=== PATIENT | male | born 1985 | race Caucasian/White ===

== ENCOUNTER 2017-03-11 00:26 | Emergency (ER) | payer BC, SELFPAY ==
[2017-03-11 00:28] VITALS: BP 170/95; PULSE 102; RESP 12; TEMP 36.8; O2SAT 98; BMI 23.1
--- NOTE | 2017-03-11 00:38 | XR_ITS ---
XR chest 2V HISTORY: ITS.REASON: PALPITATIONS/TACHYCARDIA ORDERING PHYSICIAN: Ahmet Black MD PATIENT AGE: 31 years COMPARISON: 10/26/2006 FINDINGS: The cardiomediastinal silhouette and pulmonary vascularity are within normal limits. The lungs are clear without infiltrates, suspicious nodules, or pleural effusions. No acute bony abnormalities. IMPRESSION: Negative chest, no acute finding
[2017-03-11 00:59] LABS: Basophils # 0.1 K/mm3 (0-0.2); Basophils % 0.6 % (0.1-2.0); Eosinophils # 0.1 K/mm3 (0.0-0.4); Eosinophils % 1.1 % (0.1-12.0); Hematocrit 44.6 % (42.0-52.0); Hemoglobin 14.9 g/dL (14.1-18.0); Lymphocytes # 2.9 K/mm3 (0.7-4.5); Lymphocytes % 30.8 K/mm3 (10-50); Mean Corpuscular HGB Conc 33.4 g/dL (31.8-35.4); Mean Corpuscular Hemoglobin 28.5 pg (27.0-31.2); Mean Corpuscular Volume 85.1 fl (80-94); Mean Platelet Volume 7.1 fl (7.4-10.4); Monocytes # 0.5 K/mm3 (0.1-1.0); Monocytes % 5.2 % (1.7-9.3); Neutrophils # 5.8 K/mm3 (1.8-7.8); Neutrophils % 62.4 % (37.0-80.0); Platelet Count 364 K/mm3 (142-424); Red Blood Count 5.24 M/mm3 (4.60-6.20); Red Cell Distribution Width 12.2 % (11.5-17.5); White Blood Count 9.3 K/mm3 (4.8-10.8)
[2017-03-11 01:18] LABS: Alanine Aminotransferase 42 U/L (12-78); Albumin Level 4.2 gm/dL (3.4-5.0); Albumin/Globulin Ratio 1.3 (1.1-1.8); Alkaline Phosphatase 94 U/L (46-116); Anion Gap 12.4 mEq/L (5-15); Aspartate Amino Transferase 20 U/L (15-37); Bilirubin,Total 0.2 mg/dL (0.2-1.0); Blood Urea Nitrogen 11 mg/dL (7-18); CKMB Relative Index 0.9 U/L (0-4.0); Calcium 9.1 mg/dL (8.5-10.1); Carbon Dioxide 28 mmol/L (21.0-32.0); Chloride 103 mmol/L (98-107); Creatine Kinase 223 U/L (39-308); Creatine Kinase MB 2.1 mg/ml (0.0-3.6); Creatinine Clearance Estimated 145 mL/min (0-300); Creatinine,Serum 0.91 mg/dL (0.70-1.30); Estimated Glomerular Filt Rate 98 ml/min (>60); GFR (African American) 118 ML/MIN (>60); Globulin 3.3 gm/dl (1.3-3.2); Glucose 104 mg/dL (74-106); Potassium 3.4 mmoL/L (3.5-5.1); Sodium 140 mmol/L (136-145); Total Protein,Serum 7.5 gm/dL (6.4-8.2); Troponin I 0.04 ng/ml (0.00-0.06)
--- NOTE | 2017-03-11 01:29 | HMH.EDCP ---
ED Disposition Clinical Impression: Palpitations Disposition: Home, Self-Care Condition on Discharge: Good Instructions: DI for Palpitations Additional Instructions: please see pcp or dr doran for follow up - Critical Care Critical Care Time: No Attestation: On , the high probability of a clinically significant, sudden or life threatening deterioration of the following system(s) required my full and direct attention, intervention and personal management. The time I documented below is in addition to time spent performing reported procedures but includes the following listed in this critical care notation. Medical Decision Making - Medical Records Medical records reviewed: Yes: I reviewed the patient's medical records. Vital Signs: 03/11/17 00:28 03/11/17 01:36 Temperature 98.3 F Temperature Source Oral Pulse Rate [Right Brachial] 102 H 64 Respiratory Rate 12 18 Blood Pressure [Right Arm] 170/95 142/75 Blood Pressure Mean [Right Arm] 120 97 Blood Pressure Source [Right Arm] Automatic Cuff Automatic Cuff Blood Pressure Position [Right Arm] Sitting Sitting 02 Sat by Pulse Oximetry 98 99 Oxygen Delivery Method Room Air Room Air - Lab Data Lab results reviewed: Yes: I reviewed the patient's lab results. Lab Results 03/11/17 00:45: WBC 9.3, RBC 5.24, Hgb 14.9, Hct 44.6, MCV 85.1, MCH 28.5, MCHC 33.4, RDW 12.2, Plt Count 364, MPV 7.1 L, Neut % (Auto) 62.4, Lymph % (Auto) 30.8, [place] % (Auto) 5.2, Eos % (Auto) 1.1, Baso % (Auto) 0.6, Neut # (Auto) 5.8, Lymph # (Auto) 2.9, [place] # (Auto) 0.5, Eos # (Auto) 0.1, Baso # (Auto) 0.1 03/11/17 00:45: Sodium 140, Potassium 3.4 L, Chloride 103, Carbon Dioxide 28, Anion Gap 12.4, BUN 11, Creatinine 0.91, Estimated Creat Clear 145, Estimated GFR 98, Est GFR ( Amer) 118, Glucose 104, Calcium 9.1, Total Bilirubin 0.2, AST 20, ALT 42, Alkaline Phosphatase 94, Total Creatine Kinase 223, CK-MB (CK-2) 2.1, CK-MB (CK-2) Rel Index 0.9, Troponin I 0.04, Total Protein 7.5, Albumin 4.2, Globulin 3.3 H, Albumin/Globulin Ratio 1.3 03/11/17 01:40: Urine Opiates Screen Negative, Ur Barbituates Screen Negative, Ur Phencyclidine Scrn Negative, Ur Amphetamines Screen Negative, U Methamphetamines Scrn Negative, U Benzodiazepines Scrn Negative, Urine Cocaine Screen Negative, U Marijuana (THC) Screen Negative Result diagrams: 03/11/17 00:45 03/11/17 00:45 Orders (Tests/Meds): ORDERS Category Date Time Status Chest XR 2 view (NOT portable) [XR chest 2V] Stat Exams 03/11/17 00:38 Taken T4 (Thyroxine) Stat Lab 03/11/17 01:59 Ordered TSH [Thyroid Stimulating Hormone] Stat Lab 03/11/17 01:59 Ordered ECG Request by /Mdahav Stat Y 03/11/17 00:38 Ordered - Radiology Data #1 Image(s): Chest Image Reviewed: Yes I reviewed the patient's radiology image Preliminary Findings: Normal/NAD - ECG Data Tracing #1 I reviewed this ECG and interpreted as documented below: Ischemic changes: non-specific ST-T wave changes - Zeyad Inquiry Pt receiving controlled substance: No Chest Pain HPI - General Chief Complaint: Arrhythmia/Palpitations Stated Complaint: C/O RAPID HEARTRATE Time Seen by Provider: 03/11/17 01:29 Mode of Arrival: Family Vehicle Limitations: No Limitations Description of Symptoms (Recalled from ER Triage Doc. by RN): C/O PALPITATIONS/RAPID HEART RATE - History of Present Illness HPI narrative: pt with episodes of inc hr with no fever or syncope over the last 3 days - no excessive stimulants MD complaint: other Onset (ago): day(s) Duration: intermittent Pain location: other Severity: moderate Quality: other Relieving factors: nothing Exacerbating factors: nothing Treatments prior to or on arrival for Cardiac Chest Pain: none - Related Data Home Medications Medication Instructions Recorded Confirmed No Known Home Medications [No 03/11/17 03/11/17 Known Home Medications] Allergies Allergy/AdvReac Type Severity Reacti
--- NOTE | 2017-03-11 01:33 | ED_ITS ---
ED Disposition Clinical Impression: Palpitations Disposition: Home, Self-Care Condition on Discharge: Good Instructions: DI for Palpitations Additional Instructions: please see pcp or dr doran for follow up - Critical Care Critical Care Time: No Attestation: On , the high probability of a clinically significant, sudden or life threatening deterioration of the following system(s) required my full and direct attention, intervention and personal management. The time I documented below is in addition to time spent performing reported procedures but includes the following listed in this critical care notation. Medical Decision Making - Medical Records Medical records reviewed: Yes: I reviewed the patient's medical records. Vital Signs: 03/11/17 00:28 03/11/17 01:36 Temperature 98.3 F Temperature Source Oral Pulse Rate [Right Brachial] 102 H 64 Respiratory Rate 12 18 Blood Pressure [Right Arm] 170/95 142/75 Blood Pressure Mean [Right Arm] 120 97 Blood Pressure Source [Right Arm] Automatic Cuff Automatic Cuff Blood Pressure Position [Right Arm] Sitting Sitting 02 Sat by Pulse Oximetry 98 99 Oxygen Delivery Method Room Air Room Air - Lab Data Lab results reviewed: Yes: I reviewed the patient's lab results. Lab Results 03/11/17 00:45: WBC 9.3, RBC 5.24, Hgb 14.9, Hct 44.6, MCV 85.1, MCH 28.5, MCHC 33.4, RDW 12.2, Plt Count 364, MPV 7.1 L, Neut % (Auto) 62.4, Lymph % (Auto) 30.8, [facility] % (Auto) 5.2, Eos % (Auto) 1.1, Baso % (Auto) 0.6, Neut # (Auto) 5.8 , Lymph # (Auto) 2.9, [facility] # (Auto) 0.5, Eos # (Auto) 0.1, Baso # (Auto) 0.1 03/11/17 00:45: Sodium 140, Potassium 3.4 L, Chloride 103, Carbon Dioxide 28, Anion Gap 12.4, BUN 11, Creatinine 0.91, Estimated Creat Clear 145, Estimated GFR 98, Est GFR ( Amer) 118, Glucose 104, Calcium 9.1, Total Bilirubin 0.2, AST 20, ALT 42, Alkaline Phosphatase 94, Total Creatine Kinase 223, CK-MB ( CK-2) 2.1, CK-MB (CK-2) Rel Index 0.9, Troponin I 0.04, Total Protein 7.5, Albumin 4.2, Globulin 3.3 H, Albumin/Globulin Ratio 1.3 03/11/17 01:40: Urine Opiates Screen Negative, Ur Barbituates Screen Negative, Ur Phencyclidine Scrn Negative, Ur Amphetamines Screen Negative, U Methamphetamines Scrn Negative, U Benzodiazepines Scrn Negative, Urine Cocaine Screen Negative, U Marijuana (THC) Screen Negative Result diagrams: 03/11/17 00:45 03/11/17 00:45 Orders (Tests/Meds): ORDERS Category Date Time Status Chest XR 2 view (NOT portable) [XR chest 2V] Stat Exams 03/11/17 00:38 Taken T4 (Thyroxine) Stat Lab 03/11/17 01:59 Ordered TSH [Thyroid Stimulating Hormone] Stat Lab 03/11/17 01:59 Ordered ECG Request by /Madhav Stat Y 03/11/17 00:38 Ordered - Radiology Data #1 Image(s): Chest Image Reviewed: Yes I reviewed the patient's radiology image Preliminary Findings: Normal/NAD - ECG Data Tracing #1 I reviewed this ECG and interpreted as documented below: Ischemic changes: non-specific ST-T wave changes - Zeyad Inquiry Pt receiving controlled substance: No Chest Pain HPI - General Chief Complaint: Arrhythmia/Palpitations Stated Complaint: C/O RAPID HEARTRATE Time Seen by Provider: 03/11/17 01:29 Mode of Arrival: Family Vehicle Limitations: No Limitations Description of Symptoms (Recalled from ER Triage Doc. by RN): C/O PALPITATIONS/ RAPID HEART RATE - History of Present Illness HPI narrative: p
[2017-03-11 01:36] VITALS: BP 142/75; PULSE 64; RESP 18; O2SAT 99
[2017-03-11 01:56] LABS: Amphetamine/Metha Screen,Urine Negative ng/mL (<1000); Barbiturates Screen,Urine Negative ng/mL (<200); Benzodiazepines Screen,Urine Negative ng/mL (200); Cannabinoid Screen,Urine Negative ng/mL (<50); Cocaine Screen,Urine Negative ng/g (<300); Methadone Screen,Urine Negative ng/mL (<300); Opiate Screen,Urine Negative ng/mL (<300); Phencyclidine Screen,Urine Negative ng/mL (<25)
[2017-03-11 02:38] VITALS: BP 146/83; PULSE 65; RESP 18; O2SAT 97
[2017-03-11 03:50] LABS: T4 (Thyroxine) 8.8 ug/dl (4.7-13.3); Thyroid Stimulating Hormone 2.15 uIU/ml (0.358-3.740)
== END 2017-03-11 02:43 | disposition home or self-care (01) ==
PROVIDERS: Emergency Provider Emergency Medicine; Family Provider Internal Medicine Adolescent Medicine; PCP Internal Medicine Adolescent Medicine
DX: R00.2 Palpitations (principal); F17.210 Nicotine dependence, cigarettes, uncomplicated
CPT/HCPCS: 71046; 80053; 80305; 82550; 82553; 84436; 84443; 84484; 85025; 93005; 93041; 99284

== ENCOUNTER → 2017-11-18 09:02 | Outpatient (CLI) | payer BC, SELFPAY | PROVIDERS: PCP Internal Medicine Adolescent Medicine; Visit Provider Internal Medicine Adolescent Medicine | DX: R07.9 Chest pain, unspecified (principal) | CPT/HCPCS: 93017 ==

== ENCOUNTER → 2018-10-22 08:10 | Outpatient (CLI) | payer OTHER, SELFPAY ==
--- NOTE | 2018-10-22 08:16 | XR_ITS ---
PROCEDURE: XR KNEE RT 4V CLINICAL INDICATION: Rt Knee pain Pain following injury COMPARISON: XR KNEE RT 3V from 10/14/2018 FINDINGS: No fracture or dislocation. No lytic or blastic change. There is normal mineralization. Mild osteoarthritic change involves the medial compartment and patellofemoral joint unchanged. Small bone island is present in the distal femur. Other findings:None. IMPRESSION: Minimal osteoarthritic change Dictated by: Kev Moseley MD 10/22/2018 09:55 Signed by: <Electronically signed by Kev Moseley MD in [place]> 10/22/2018 09:55
== END ==
PROVIDERS: PCP Internal Medicine Adolescent Medicine; Visit Provider Orthopaedic Surgery
DX: M25.561 Pain in right knee (principal)
CPT/HCPCS: 73564

== ENCOUNTER → 2018-11-26 14:24 | Outpatient (CLI) | payer OTHER, SELFPAY ==
--- NOTE | 2018-11-26 14:40 | MR_ITS ---
PROCEDURE: MR KNEE RT WO CON CLINICAL INDICATION: right knee pain COMPARISON: No exams were available for comparison TECHNIQUE: Routine multi-echo and multiplanar images. FINDINGS: Alignment, joint spaces and signal from the osseous marrow elements are normal. There are a few small foci of increased signal within the articular cartilage at the medial facet of the patella. The cartilage is otherwise intact without marrow edema. The remainder of the articular cartilage areas of the condyles appear to be intact. The patellar retinacular areas are normal. There is some intermediate signal involving the distal insertion of the quadriceps tendon at the patella. The patellar tendon is intact. Anterior and posterior cruciate ligaments as well as the MCL and lateral capsular complex appear to be intact. Coronal T2 image number 18 from series number 8 shows very subtle truncated appearance of the inner tip of the body of the medial meniscus. The remainder of the medial meniscus and the lateral meniscus appear normal. Surrounding soft tissues are otherwise normal without a popliteal cyst. There is a small joint effusion. IMPRESSION: Subtle small truncated type of radial tear of the body of the medial meniscus, 18 from series 8. 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 Tendinosis of the quadriceps tendon. Dictated by: Shiv Rivera 11/26/2018 16:54 Electronically signed by Shiv Rivera in [place] 11/26/2018 16:54
== END ==
PROVIDERS: PCP Internal Medicine Adolescent Medicine; Visit Provider Orthopaedic Surgery
DX: M25.561 Pain in right knee (principal)
CPT/HCPCS: 73721

== ENCOUNTER → 2021-02-13 19:01 | Outpatient (CLI) | payer BC, SELFPAY | PROVIDERS: Visit Provider Nurse Practitioner Family | DX: Z20.822 Contact with and (suspected) exposure to COVID-19 (principal) | CPT/HCPCS: C9803; U0003; U0005 ==

== ENCOUNTER → 2021-03-12 19:26 | Outpatient (CLI) | payer BC, SELFPAY | PROVIDERS: Visit Provider Nurse Practitioner Family | DX: U07.1 COVID-19 (principal) | CPT/HCPCS: C9803; U0003; U0005 ==

== ENCOUNTER 2022-02-04 09:55 | Emergency (ER) | payer BC, SELFPAY ==
--- NOTE | 2022-02-04 12:13 | EXP.UTC ---
Discharge Plan Disposition Patient Disposition: Home, Self-Care Condition: Good Prescriptions Prescriptions: New amoxicillin [amoxicillin] 500 mg tablet 500 mg PO TID 10 Days Qty: 30 0RF methylprednisolone 4 mg Tablets,Dose Pack 4 mg PO DIRECTED Qty: 21 0RF [id number]-[id number]-DT [Bromfed DM] 2-30-10 mg/5 mL Syrup 5 ml PO Q6H PRN (Reason: Cough) Qty: 240 0RF No Action amlodipine 5 mg tablet 5 mg PO Referrals Follow up/Referrals: Provider,Referral, MD [Primary Care Provider] - See instructions Activity Restrictions/Add. Instructions Additional Instructions/Restrictions: Drink plenty of fluids. Take tylenol or ibuprofen for pain or fever. Take the medications as directed. Follow up with your regular doctor. GO TO THE ER FOR ANY WORSENING SYMPTOMS Clinical Impressions Clinical Impression: Otitis media, Bronchitis Stand Alone Forms Stand Alone Forms: Work/School Release Instructions Patient Instructions: Middle Ear Infection, DI for Viral Syndrome Discharge ED Provider: Corwin Douglas [facility] General Stated complaint: chest/head congestion, ear pain, body aches Time Seen by Provider: 02/04/22 12:13 History of Present Illness Provider Complaint: He c/o chest/head congestion, ear pain and malaise for the past 2 days Related Data Home Medications Medication Instructions Recorded Confirmed amlodipine 5 mg tablet 5 mg PO 02/13/21 03/12/21 Previous Rx's Medication Instructions Recorded amoxicillin 500 mg tablet 500 mg PO TID 10 days #30 tabs 02/04/22 qqpltaflshzfavn-exxmvwwdqjibjnr-RH 5 ml PO Q6H PRN Cough #240 mL 02/04/22 2 mg-30 mg-10 mg/5 mL oral syrup (Bromfed DM) methylprednisolone 4 mg tablets in 4 mg PO DIRECTED #21 tabs 02/04/22 a dose pack Allergies Allergy/AdvReac Type Severity Reaction Status Date / Time No Known Allergies Allergy Verified 02/04/22 12:24 [facility] Disclaimer: The information contained in this section may have been updated after the patient was seen, as this information can be updated by other users. Social History Smoking Status: Current every day smoker tobacco type: cigarettes packs per day: 1 alcohol intake: never substance use type: denies use current occupational status: employed Travel in the last 8 weeks: None household members: significant other housing: house ROS Obtained: Yes All systems reviewed & no additional complaints except as documented Constitutional Constitutional: Denies chills, Reports fever(s) and Reports poor appetite Eyes Eyes: Denies eye discharge ENT Ears, Nose, Mouth, and Throat: Denies ear discharge, Reports otalgia, Denies hearing loss, Denies sinus pain and Reports sore throat Cardiovascular Cardiovascular: Denies chest pain and Denies dyspnea Respiratory Respiratory: Denies chest congestion, Reports cough and Denies dyspnea Gastrointestinal Gastrointestingal: Denies abdominal pain, diarrhea, nausea or vomiting Musculoskeletal Musculoskeletal: Denies arthralgias Integumentary/Breasts Skin/Breast: Denies rash Physical Exam General General appearance: alert and in no apparent distress Head Head exam: atraumatic, normocephalic and normal inspection Eye Eye exam: Present normal appearance; Absent PERRL or EOMI ENT ENT exam: Present mucous membranes moist and normal external ear exam Expanded ENT Exam TM/Canal exam: Bilateral TM: erythema, bulging and effusion Nose exam: Absent sinus tenderness Nasal speculum exam: Bilateral: normal Mouth exam: Present normal external inspection and other; Absent drooling Teeth exam: Present normal inspection Throat exam: Present tonsillar erythema and tonsillomegaly Neck Neck exam: Present normal inspection, full ROM and trachea midline; Absent tenderness, meningismus or lymphadenopathy Chest Chest inspection: Present normal inspection and symmetric chest wall rise;
[2022-02-04 12:22] VITALS: BP 131/84; PULSE 72; RESP 16; TEMP 36.8; O2SAT 99; BMI 25.0
[2022-02-04 12:25] LABS: UTC Strep Screen (Rapid) Negative (Negative)
[2022-02-04 12:29] LABS: Adenovirus,PCR Not Detected (NotDetected); Bordetella Pertussis Not Detected (NotDetected); Chlamydophila Pneumoniae, PCR Not Detected (NotDetected); Coronavirus 19, PCR Not Detected (NotDetected); Coronavirus 229E Not Detected (NotDetected); Coronavirus NL63 Not Detected (NotDetected); Coronavirus OC43 Not Detected (NotDetected); Coronovirus HKU1,PCR Not Detected (NotDetected); Human Metapneumovirus Not Detected (NotDetected); Influenza A, PCR Not Detected (NotDetected); Influenza AH1, 2009 Not Detected (NotDetected); Influenza AH1, PCR Not Detected (NotDetected); Influenza AH3,PCR Not Detected (NotDetected); Influenza B, PCR Not Detected (NotDetected); Mycoplasma Pneumoniae, PCR Not Detected (NotDetected); Parainfluenza 1, PCR Not Detected (NotDetected); Parainfluenza 2, PCR Not Detected (NotDetected); Parainfluenza 3, PCR Not Detected (NotDetected); Parainfluenza 4, PCR Not Detected (NotDetected); Respiratory Syncytial Virus Not Detected (NotDetected); Rhinovirus/Enterovirus Not Detected (NotDetected)
[2022-02-04 13:03] VITALS: BP 131/84; PULSE 72; RESP 16; TEMP 36.8
== END 2022-02-04 13:11 | disposition home or self-care (01) ==
PROVIDERS: Emergency Provider Nurse Practitioner Family
DX: J40 Bronchitis, not specified as acute or chronic (principal); H66.90 Otitis media, unspecified, unspecified ear
CPT/HCPCS: 87581; 87632; 87798; 87880; 99212; C9803; G0463; U0003; U0005

== ENCOUNTER → 2022-12-10 15:54 | Outpatient (CLI) | payer BC, SELFPAY ==
--- NOTE | 2022-12-10 15:58 | XR_ITS ---
FINAL REPORT CLINICAL HISTORY: R elbow pain x1 month FINDINGS: 2 views of the right elbow were obtained. There is no acute fracture or dislocation. There is no joint effusion. The joint spaces are intact. There are no acute soft tissue abnormalities. IMPRESSION: No acute process. Reviewed, Interpreted and Dictated by Alvin Quinones III, MD Transcribed by Med Simmons Authenticated and [facility]
== END ==
PROVIDERS: Visit Provider Orthopaedic Surgery
DX: M25.521 Pain in right elbow (principal)
CPT/HCPCS: 73070

== ENCOUNTER 2023-03-13 09:08 | Outpatient (CLI) | payer BC, SELFPAY ==
--- NOTE | 2023-03-13 09:09 | US_ITS ---
FINAL REPORT TECHNIQUE: Ultrasound soft tissues lateral aspect of the right knee. CLINICAL HISTORY: soft tissue swelling of lateral R knee COMPARISON: None FINDINGS: ULTRASOUND SOFT TISSUES RIGHT KNEE: The patient has a palpable mass on the lateral aspect of the right knee. There is a 2.4 x 0.9 x 1.2 cm fluid collection at the area of interest. This likely represents a seroma, hematoma, or abscess. IMPRESSION: 2.4 x 0.9 x 1.2 cm fluid collection in the area of interest, lateral aspect right knee. This likely represents a seroma, hematoma Reviewed, Interpreted and Dictated by Alvin Quinones III, MD Transcribed by Rimma Fitch Authenticated and . [facility]
== END 2023-03-13 23:59 | disposition home or self-care (01) ==
LOC: RAD 09:09
PROVIDERS: PCP Student in an Organized Health Care Education/Training Program; Visit Provider Student in an Organized Health Care Education/Training Program
DX: M25.461 Effusion, right knee (principal)
CPT/HCPCS: 76882

== ENCOUNTER 2023-03-17 15:49 | Outpatient (CLI) | payer BC, SELFPAY ==
--- NOTE | 2023-03-17 15:54 | XR_ITS ---
FINAL REPORT CLINICAL HISTORY: mass of soft tissue of right knee COMPARISON: None FINDINGS: Three views of the right knee were obtained. There is no acute fracture or dislocation. There are minimal hypertrophic changes of the medial joint margin along the undersurface of the patella consistent with osteoarthritis. No definite soft tissue mass identified. IMPRESSION: Degenerative changes. No definite soft tissue mass identified. MRI may better evaluate. Reviewed, Interpreted and Dictated by Adithya Ro MD Transcribed by Xin Lama Authenticated and [facility]
== END 2023-03-17 23:59 ==
LOC: RAD 15:51
PROVIDERS: PCP Student in an Organized Health Care Education/Training Program; Visit Provider Student in an Organized Health Care Education/Training Program
DX: M79.89 Other specified soft tissue disorders (principal)
CPT/HCPCS: 73562

== ENCOUNTER 2023-04-09 08:01 | Outpatient (CLI) | payer BC, SELFPAY ==
--- NOTE | 2023-04-09 08:12 | MR_ITS ---
FINAL REPORT CLINICAL HISTORY: knee pain. KNOT ON LATERAL ASPECT OF KNEE.PUT MARKER ON KNOT. COMPARISON: 11/26/2018 FINDINGS: Multiplanar MR imaging of the right knee was performed without contrast. There is a tear of the posterior horn of the lateral meniscus. The medial meniscus is intact. The anterior and posterior cruciate ligaments are intact. The medial collateral ligament and lateral ligamentous complex are intact. The patellar and quadriceps tendons are intact. There is no evidence of fracture. There is focal moderate chondromalacia of the medial patellar facet. No significant joint effusion is seen. The musculature is intact. There is a 22 mm lobular cystic mass lateral to the tibiofibular joint consistent with a ganglion cyst. There is also a lobular cyst medial to the proximal tibiofibular joint, which is stable since the prior MRI. IMPRESSION: Tear posterior horn lateral meniscus. Focal moderate chondromalacia of the medial patellar facet. Small cystic structures adjacent to both the medial and lateral aspects of the knee, consistent with ganglion cysts. The medial cyst is stable in appearance, while the lateral cyst is larger than the prior exam. Reviewed, Interpreted and Dictated by Alvin Quinones III, MD Transcribed by Rimma Fitch Authenticated and . [facility]
== END 2023-04-09 23:59 ==
LOC: RAD 08:01
PROVIDERS: PCP Student in an Organized Health Care Education/Training Program; Visit Provider Orthopaedic Surgery
DX: M25.561 Pain in right knee (principal); M25.461 Effusion, right knee
CPT/HCPCS: 73721

== ENCOUNTER 2023-04-24 11:16 | Outpatient (CLI) | payer BC, SELFPAY ==
[2023-04-24 11:30] LABS: Basophils # 0.1 K/mm3 (0-0.2); Basophils % 1.5 % (0.1-2.0); Eosinophils # 0.1 K/mm3 (0.0-0.4); Eosinophils % 1.6 % (0.1-12.0); Hematocrit 49.3 % (42.0-52.0); Hemoglobin 16.2 g/dL (14.1-18.0); Lymphocytes # 2.8 K/mm3 (0.7-4.5); Lymphocytes % 34.8 % (10-50); Mean Corpuscular HGB Conc 32.8 g/dL (31.8-35.4); Mean Corpuscular Hemoglobin 29.4 pg (27.0-31.2); Mean Corpuscular Volume 89.5 fl (80-94); Mean Platelet Volume 7.7 fl (7.4-10.4); Monocytes # 0.6 K/mm3 (0.1-1.0); Monocytes % 7.2 % (1.7-9.3); Neutrophils # 4.4 K/mm3 (1.8-7.8); Neutrophils % 54.8 % (37.0-80.0); Platelet Count 306 K/mm3 (142-424); Red Cell Distribution Width 12.9 % (11.5-17.5)
[2023-04-24 12:04] LABS: Alanine Aminotransferase 60 U/L (12-78); Albumin Level 4.7 g/dl (3.5-5.0); Albumin/Globulin Ratio 1.8 (1.1-1.8); Alkaline Phosphatase 73 U/L (38-126); Anion Gap 10.9 mEq/L (5-15); Aspartate Amino Transferase 38 U/L (17-59); Bilirubin,Total 0.6 mg/dl (0.2-1.3); Blood Urea Nitrogen 8 mg/dl (9-20); Calcium 9.5 mg/dl (8.4-10.2); Carbon Dioxide 28 mmol/L (22.0-30.0); Chloride 105 mmol/L (98-107); Estimated Glomerular Filt Rate 109 ml/min (>60); GFR (African American) 132 ML/MIN (>60); Globulin 2.6 g/dL (1.3-3.2); Glucose 76 mg/dl (74-100); Potassium 3.9 mmoL/L (3.5-5.1); Sodium 140 mmol/L (136-145); Total Protein,Serum 7.3 g/dl (6.3-8.2)
== END 2023-04-24 23:59 ==
LOC: LAB 11:16
PROVIDERS: PCP Student in an Organized Health Care Education/Training Program; Visit Provider Orthopaedic Surgery
DX: M25.461 Effusion, right knee (principal)
CPT/HCPCS: 36415; 80053; 85025

== ENCOUNTER 2023-04-30 07:04 | Day surgery (SDC) | payer BC, SELFPAY ==
[2023-04-30] VITALS (10 sets, daily range): BP systolic 127–155; BP diastolic 75–96; PULSE 65–81; RESP 12–99; TEMP 36.3–36.6; O2SAT 96–98; BMI 24.3
[2023-04-30] MEDS: LACTATED RINGERS 1000ML 1,000 ML 25 ML IV (07:18)
[2023-04-30] MEDS: CEFAZOLIN SODIUM 2 GM in 0.9 % SODIUM CHLORIDE 100 ML IV (08:40)
--- NOTE | 2023-04-30 08:47 | P.PNANES_ITS ---
[facility] Disclaimer: The information contained in this section may have been updated after the patient was seen, as this information can be updated by other users. 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 HTN (hypertension) Knee pain Surgical History (Updated 04/30/23 @ 07:25 by Jose J Bravo RN) History of cardiac cath History of tonsillectomy Family History (Updated 04/30/23 @ 07:25 by Jose J Bravo RN) Family/Other No significant family history Other Prostate cancer Social History (Updated 04/30/23 @ 07:26 by Jose J Bravo RN) Smoking Status: Current every day smoker tobacco type: cigarettes packs per day: 1 alcohol intake: never substance use type: denies use current occupational status: employed Travel in the last 8 weeks: None household members: significant other housing: house [facility] Anesthesia Checklist Patient Identification Patient Identification: Verbal (Name & ) Structural Data Admitted From: Home Planned Operative Procedure/s: r knee arthroscopy Consent for Planned Operative Procedure(s) Verified: Yes NPO Status Verified Time NPO: 00:00 Additional verifications Anesthesia Reactions: No Hx Blood Transfusions: No Blood Transfusion Reaction: No Airway Assessment Mallampati Score:: Class III C-Spine Mobility Assessed: Yes TMJ Mobility Assessed: Yes Dentition: Good Dentition Neurological Assessment Level of Consciousness: Awake, Alert and Appropriate Anesthesia Plan Anesthesia Risk discussed: Yes Anesthesia Plan: Verified ASA Class: II Anesthesia Type: General
[2023-04-30] MEDS: BUPIVACAINE 0.25% 30ML VIAL 75 MG (08:52)
--- NOTE | 2023-04-30 09:48 | P.OP_ITS ---
Date of procedure: 04/30/23 Pre-op Diagnosis:: Right knee lateral meniscus tear Right knee parameniscal cyst Post-op Diagnosis:: Same Procedure performed:: Right knee arthroscopy with partial lateral meniscectomy Right knee incision drainage parameniscal cyst Surgeon:: Christiano Mcclelland DO RETURN CLERK:: Zach Henderson Anesthesia: GETA Estimated blood loss (mL): 0 Operative findings:: There is a large engaging synovial tissue on the lateral aspect of the knee where the meniscal fluid was leaking from the lateral meniscus tear with subsequent rubbing of the lateral femoral condyle and formation of osteophyte indicating longstanding rubbing and impingement of the soft tissue on the lateral joint line Operative note:: Patient was identified preoperatively. Right knee marked yes my initials transferred operative suite placed upon operating bed general anesthesia ministered airway secured. Right lower extremity prepped and draped within the knee hair. Once prepped and draped final operative timeout performed to identify proper patient procedure and extremity. Everyone involved the case agreed. There were no counter indications to beginning. Did receive preoperative antibiotics. Marking pen was used to hannah bony landmarks of the knee and standard portal sites. Esmarch was used to exsanguinate the extremity and pneumatic tourniquet inflated to 300 mmHg. Skin knife was used to incise standard anterior lateral portal. Blunt with trocar was placed in the patellofemoral joint exchange with a camera. Diagnostic arthroscopy began. I swept directly into the patellofemoral joint where the patella was intact the trochlea was intact with some mild softening of the undersurface of the patella. Subjective into the medial joint line. The medial cartilage was intact the medial meniscus was intact. So into the intercondylar notch the ACL was seen and intact. Tensions then brought to the lateral joint line. Within the lateral joint line there was tearing of the body and posterior horn the lateral meniscus using combination of straight biter and sucker shaver partial lateral meniscectomy was performed back to stable rim. Upon flexion extension of the knee there was soft tissue impingement in the anterior horn of the lateral meniscus with a large impingement area anterior to the lateral meniscus which was rubbing on the lateral femoral condyle and creating osteophyte formation in this area. Shanthi ridement of this synovium and rim were performed to allow the knee to bend without impinging impinging on the soft tissue which was where the fluid was leaking from the synovial cyst formed. Upon removing the soft tissue synovitis there is no further clicking of the knee with bending and extension. Unfortunately a significant amount of lateral meniscus was torn and had to be sacrificed and meniscectomy Attention was then brought to the lateral side where there is a cyst formation inferior to the joint line 15 blade was used to make incision the skin careful dissection was taken down cyst was then ruptured with a hemostat. Irrigation was performed. Deep layers closed with Vicryl and nylon the skin for closure. Portal sites in the knee were also closed. Sterile dressing placed from toe to thigh. Patient waken anesthesia taken recovery in stable condition. Condition: stable Disposition: PACU Complications:: None apparent
--- NOTE | 2023-04-30 09:48 | P.PNANES_ITS ---
[facility] Anesthesia Record Part I Anesthesia Record I Intake, IV Amount: 1,500 Hydration: Adequate Estimated blood loss (mL): 0 Urine output (mL): 0 Blood Pressure: 145/91 SaO2: 96 Pulse Rate: 72 Airway Patency: Patent Respiratory Rate: 12 Temperature: 97.5 F Patient is:: Awake and Stable Stable to PACU at:: 09:48
[2023-04-30] MEDS: MORPHINE 2MG/ML SYRINGE 2 MG IV ×2 (10:10→10:19)
--- NOTE | 2023-05-05 16:39 | P.PNANES_ITS ---
[facility] Anesthesia Record Part II Anesthesia Record Part II Discharge Time: 10:24 Destination: Surgical Day Care (OP Surgery) PACU nurse assessment reviewed?: Yes Patient Condition:: Good Anesthesia Complications:: None Swallowing reflex intact?: Yes Airway Patency: Patent Cyanosis?: No Blood Pressure: 147/89 SaO2: 98 Respiratory Rate: 18 Pulse Rate: 71 Temperature: 97.3 F Mental Status: Alert & Oriented Pain level:: 3 Nausea and/or vomitting:: None Intake, IV Amount: 0 Hydration: Adequate
[2023-05-05 16:40] VITALS: BP 147/89; PULSE 71; RESP 18; TEMP 36.3; O2SAT 98
== END 2023-04-30 10:50 | disposition home or self-care (01) ==
PROVIDERS: Visit Provider Orthopaedic Surgery
PROC: (CPT 29870; principal; 2023-04-30 08:15)
DX: S83.271A Complex tear of lateral meniscus, current injury, right knee, initial encounter (principal); M23.061 Cystic meniscus, other lateral meniscus, right knee; M25.561 Pain in right knee; I10 Essential (primary) hypertension; F17.210 Nicotine dependence, cigarettes, uncomplicated
CPT/HCPCS: 29881; 96374; J2405

== ENCOUNTER 2023-07-08 15:00 | Outpatient (RCR) | payer BC, SELFPAY ==
--- NOTE | 2023-05-29 12:42 | HMH.PTOPEV ---
PT Outpatient Evaluation Rehab PT Outpatient Evaluation Start: 05/29/23 11:01 Freq: Status: Active Protocol: Document 05/29/23 11:01 FRANKIEALDA (Rec: 05/29/23 12:42 YANI [id number]) E-signed By Shira Winters, PT Outpatient Therapy Subjective History Subjective History Pt is a 37 y/o male who reports to PT 4 weeks s/p right knee arthroscopy with lateral meniscectomy and excision of synovial cyst performed on 04/30/23. Pt denies complications following the surgery. Pt reports pain and tightness of his distal quadricep and anterior knee and limited knee flexion/ extension ROM following surgery. Pt reports pain is aggravated by bending/ straightening the knee, squatting, stair climbing and prolonged standing and walking >1 hr. Pt reports he notices favoring his left side and walking with a limp due to inability to straighten the right knee. Pt also reports swelling along the lateral and medial aspects of the knee after prolonged activity. Pt states his bedroom is upstairs , states he is able to ascend stairs without issues but has difficulty descending stairs with sense of instability. Pt reports he had a follow-up visit regarding his knee today and he returns in 6 weeks for his next appointment. Pt reports he is taking Aspirin as needed for pain control. Occupation: [employer] (8 hrs, on restrictions including no squatting and rest as needed) - pt returned to work on 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: High blood pressure New diagnosis of cancer in past 12 No months? Chief Complaint Pain,Stiff,Swelling Symptom Type Ache,Sharp,Dull Symptoms Relieved By Rest/Positioning,Ice,OTC Meds, Elevation Symptoms Aggravated By Standing,Physical Activity, Walking Current Functional Limitations Dressing,Driving,Sleeping, Standing,Squatting,Recreation Activity,Walking,Stairs, Balance Symptom Description Intermittent Level of pain today (0-10) 4 Pain scale - at its best (0-10) 4 Pain scale - at its worst (0-10) 6 Hip/Knee Eval Gait Observation General Gait Pattern Observation Antalgic Gait,Decrease Weight Bear (R),Decrease Stride Lngth (R) Assistive Device Assistive Devices None / NA Palpation Tenderness right Knee Palpation Finding Tenderness Knee Palpation Overall Comment global tenderness along med/ lat jt lines, quad mm, incisions MMT Hip Flexion Strength Grade 4 Good Hip Abduction Strength Grade 4 Good Hip Adduction Strength Grade 4 Good Hip Extension Strength Grade 4- Good- Knee Extension Strength Grade 3- Fair- Knee Flexion Strength Grade 4- Good- ROM Knee Extension Active Range of Motion ( 20 degrees) Knee Flexion Active Range of Motion ( 95 degrees) Knee Flexion Passive Range of Motion ( 112 degrees) Knee ROM Limitations Soft Tissue Tightness,Pain Sensation Comment equal and intact to light touch sensation Effusion joint effusion knee exam standard right Mid - Patellar Circumerential Measure ( 37 cm) Lower Extremity Functional Index Activities Today, do you or would you have any difficulty at all with: a.Any of your usual work, housework or A little bit of difficulty school activities b. Your usual hobbies, recreational or A little bit of difficulty sporting activities c. Getting into or out of the bath No difficulty d. Walking between rooms A little bit of difficulty e. Putting on your shoes or socks A little bit of difficulty f. Squatting Extreme difficulty or unable to perform activity g. Lifting an object, like a bag of No difficulty groceries from the floor h. Performing light activities around No difficulty your home i. Performing heavy activities around A little bit of difficulty your home j. Getting into or out of a car A little bit of difficulty k. Walking 2 blocks Moderate difficulty l. Walking a mile Moderate difficulty m. Going up or down 10 stairs (about 1 A little bit of difficulty flight of stairs) n. Standing for 1 hour Moderate difficulty o. Sitting for 1 hour A little bit of difficulty p. Running on even ground Extreme difficulty or unable to perform activity q. Running on uneven ground Moderate difficulty r. Making sharp turns while running fast Extreme difficulty or unable to perform activity s. Hopping Quite a bit of difficulty t. Rolling over in bed A little bit of difficulty LEFI Score Lower Extremity Functional Index Score 48 Outpatient Therapy Assessment Impairments Problems/Impairmments Palpation Tenderness,Impaired Range of Motion,Impaired Strength,Impaired Gait Pattern ,Impaired Walking,Impaired Standing,Impaired Dressing, Impaired Stair Climbing, Impaired Incline Stepping, Impaired Stepping on Uneven Surface,Impaired Squatting, Impaired Recreational Activities,Impaired Running, Impaired Work Activities, Impaired Balance,Increased Edema,Subjective C/O Pain, Impaired Self Care/Self Management Prognosis Rehab Potential Good Clinical Impression Consistent with Diagnosis Yes Short Term Goals Number of Weeks 3 Increase Range of Motion Yes: Improve R knee AROM extension to 10 or less & flexion to 105 Improve LEFI Score Yes: Improve score to 58/80 to improve overall QOL Decrease Subjective C/O Pain Yes: Improve pain at worst to 4/10 to improve overall QOL Improve Self Care/Self Management Yes Patient to be Ind w/ HEP Yes 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 2/10 or less Improve LEFI Score Yes: Improve score to 68/80 to improve overall QOL Decrease Edema Yes Decrease Subjective C/O Pain Yes: Improve pain at worst to 2/10 to improve overall QOL Patient to be Ind w/ Advanced HEP Yes Outpatient Therapy Plan of Care Treatment Plan May Include Therapeutic Exercise Including Home Yes Exercise Program Manual Therapy Techniques Yes Neuromuscular Re-education Yes Therapeutic Activities to Return to Yes Previous Functional/Work Level Gait Training Yes ADL/Self Care Education Yes Dry Needling Yes Thermal Modalities Yes Electrical Stimulation Yes Ultrasound/Phonophoresis Yes Iontophoresis Yes Orthotics/Bracing/Splinting Yes Vasopneumatic Compression Pump Yes Massage Yes Manual Lymphatic Drainage Yes Wound Care Yes Eval/Re-Eval Yes Frequency Times per week 2-3 Duration Number of Weeks 4-6 Addendums This patient is a candidate for social No or vocational rehab? Patient/Guardian verbally acknowledges Yes understanding of treatment program and consents to further treatment? Patient/Guardian verbally acknowledges Yes understanding of diagnosis, prognosis and goals for treatment? Eval Complexity PT Charges 46786 - Low Complexity Shoulder/Elbow Eval Shoulder Objective Measurements Elbow Objective Measurements PHYSICIAN CERTIFICATION: I certify the specified therapy services for [facility] are required, authorized, and reviewed every 30 days.
--- NOTE | 2023-06-26 17:19 | HMH.RHREAS ---
Rehab Reassessment Rehab OP Re-assessment Start: 05/29/23 11:01 Freq: Status: Active Protocol: Document 06/26/23 15:58 FRANKIEALDA (Rec: 06/26/23 17:18 YANI [id number]) E-signed By Shira Winters PT Lower Extremity Functional Index Activities Today, do you or would you have any difficulty at all with: a.Any of your usual work, housework or A little bit of difficulty school activities b. Your usual hobbies, recreational or A little bit of difficulty sporting activities c. Getting into or out of the bath No difficulty d. Walking between rooms No difficulty e. Putting on your shoes or socks A little bit of difficulty f. Squatting Quite a bit of difficulty g. Lifting an object, like a bag of No difficulty groceries from the floor h. Performing light activities around No difficulty your home i. Performing heavy activities around A little bit of difficulty your home j. Getting into or out of a car A little bit of difficulty k. Walking 2 blocks A little bit of difficulty l. Walking a mile A little bit of difficulty m. Going up or down 10 stairs (about 1 A little bit of difficulty flight of stairs) n. Standing for 1 hour A little bit of difficulty o. Sitting for 1 hour No difficulty p. Running on even ground Extreme difficulty or unable to perform activity q. Running on uneven ground Extreme difficulty or unable to perform activity r. Making sharp turns while running fast Extreme difficulty or unable to perform activity s. Hopping Moderate difficulty t. Rolling over in bed A little bit of difficulty LEFI Score Lower Extremity Functional Index Score 53 Rehab Re-assessment Subjective Subjective Pt reports he feels 75% improved since starting PT. Pt reports he has been working 40 hrs each week with restricitons involving no squatting and is resting as needed. Pt reports lateral knee pain rated 3/10 on average and 5/10 at worst. Pt reports body weight squats to 90 degrees, end range active knee flexion, sharp turns and descending stairs exacerbate lateral knee pain. Pt also reports continued swelling of the lateral knee towards the end of his work day that improves with rest. Pt states he does notice he will limp when his knee is swollen. Pt reports compliance with HEP. Pt reports he returns to his surgeon on 07/10/23 for a follow-up visit. Objective Objective Notes Palpation: / TTP of R lateral incision, med jt line Gait: mildly antalgic R knee AROM: 0-4-118 RLE MMT: hip flex 5/5, hip abd 4+/5, hip add 4+/5, hip ext 4 +/5, knee ext 5/5, knee flex 4 +/5 RLE edema: 38.5 cm at joint line Assessment Progress Assessment Progressing as Expected Assessment Notes Pt has attended 10 PT sessions consisting of aerobic exercise, R knee ROM, RLE stretching/strengthening, gait training, HEP, manual therapy and modalities for pain/edema control with good tolerance. Pt demonstrated improved R knee AROM, RLE strength, gait, and LEFS score this date compared to the initial evaluation. Pt continues to report lateral right knee pain and difficulty with end range knee flexion, squatting, descending stairs and making sharp turns. Pt also continues to report edema of the knee with prolonged activity that often leads to antalgic gait. Overall, the pt would continue to benefit from skilled PT to further improve subjective report of pain, R knee AROM/ strength, edema, gait and functional activity tolerance to assist with return to PLOF. Patient goals met ST/5 Goals Not Met LEFS score, p! at worst, LTG Revised Goals n/a Plan Plan Continue initial POC Frequency of Therapy 2x/week Duration of therapy 4 more weeks Time and Billing Re-Eval Time 10 Re-Eval Billing Units 1 PHYSICIAN CERTIFICATION: I certify the specified therapy services for [facility] Thakkar are required, authorized, and reviewed every 30 days.
== END 2023-07-08 16:00 | disposition home or self-care (01) ==
LOC: PT 15:00
PROVIDERS: Visit Provider Orthopaedic Surgery
DX: M25.561 Pain in right knee (principal); M25.861 Other specified joint disorders, right knee; M25.461 Effusion, right knee; S83.271A Complex tear of lateral meniscus, current injury, right knee, initial encounter; S82.231A Displaced oblique fracture of shaft of right tibia, initial encounter for closed fracture; Z98.890 Other specified postprocedural states
CPT/HCPCS: 97010; 97014; 97016; 97035; 97110; 97140; 97163; 97164; 97530; G0283

== ENCOUNTER 2023-12-17 11:27 | Emergency (ER) | payer SELFPAY ==
--- NOTE | 2023-12-17 11:37 | XR_ITS ---
PROCEDURE INFORMATION: Exam: XR Right Wrist Exam date and time: 12/17/2023 11:41 AM Age: 38 years old Clinical indication: Pain; Wrist; Right TECHNIQUE: Imaging protocol: Radiologic exam of the right wrist. Views: 3 or more views. COMPARISON: US EXTREMITY RT LIMITED 03/13/2023 9:45 AM FINDINGS: Bones/joints: No acute fracture or malalignment. No worrisome lytic or blastic osseous lesion. No appreciable cortical erosion or periosteal reaction. Joint spaces are preserved. Soft tissues: No soft tissue abnormality. No joint effusion. IMPRESSION: No acute fracture or malaligment.
[2023-12-17 12:00] VITALS: BP 142/91; PULSE 72; RESP 20; TEMP 36.6; O2SAT 99; BMI 25.0
--- NOTE | 2023-12-17 12:36 | EXP.UTC ---
Discharge Plan Disposition Patient Disposition: Home, Self-Care Condition: Good Prescriptions Prescriptions: No Action amoxicillin 875 mg tablet 875 mg PO BID 10 Days Qty: 20 0RF Referrals Follow up/Referrals: Britt Rocha APRN [Primary Care Provider] - See instructions Activity Restrictions/Add. Instructions Additional Instructions/Restrictions: sprain- rest Ice with cold pack for 20 minutes remove may repeat for comfort every hour splint for support and swelling no less in the shower. Be sure not too tight but not to lose either Elevate with arm above your heart as much as possible to help reduce swelling and therefore pain Ibuprofen every 6 hours as needed for pain or inflammation. If needs something more you can take Tylenol every 4 hours as needed as long as her primary care has told he was okayed for you to take both. Follow-up immediately if new or worsening symptoms or no noticeable improvement over the next 3-5 days. call ortho if no improvement Clinical Impressions Clinical Impression: Muscle strain of right wrist Instructions Patient Instructions: DI for Wrist Sprain Print Language Print Language: Kazakh Discharge ED Provider: Aline ([facility] [place] General Stated complaint: WC-Pain R arm Mode of Arrival: Ambulatory Source of Information: Patient Limitations: No Limitations Time Seen by Provider: 12/17/23 12:12 Description of Symptoms (Recalled from Triage Doc. by RN): PATIENT C/O INJURY TO RIGHT WRIST AT WORK THIS MORNING HEENT Symptoms (Recalled from RN notes): No Resp Symptoms (Recalled from RN notes): No Skin Symptoms (Recalled from RN notes): No MS Symptoms (Recalled from RN notes): Yes Functional Status (Recalled from RN notes): WNL History of Present Illness Provider Complaint: 38-year-old male presents for right wrist pain. 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 Related Data Previous Rx's ?Medication ?Instructions ?Recorded amoxicillin 875 mg tablet 875 mg PO BID 10 days #20 tabs 07/28/23 Allergies Allergy/AdvReac Type Severity Reaction Status Date / Time No Known Allergies Allergy Verified 07/28/23 13:21 Worker's Comp Is this a Worker's Comp case?: No [facility] Disclaimer: The information contained in this section may have been updated after the patient was seen, as this information can be updated by other users. 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) HTN (hypertension) Knee pain Surgical History , OTORHINOLARYNGOLOGIST) History of cardiac cath History of tonsillectomy Family History , OTORHINOLARYNGOLOGIST) No significant family history Family/Other Prostate cancer Social History , OTORHINOLARYNGOLOGIST) Smoking Status: Current every day smoker tobacco type: cigarettes packs per day: 1 alcohol intake: never substance use type: denies use current occupational status: employed Travel in the last 8 weeks: None household members: significant other housing: house ROS Obtained: Yes Systems reviewed as appropriate & no additional complaints except as documented Physical Exam General General appearance: alert and in no apparent distress Head Head exam: atraumatic Eye Eye exam: Present normal appearance and PERRL ENT ENT exam: Present normal exam Respiratory Respiratory exam: Present normal lung sounds bilaterally Cardiovascular Cardiovascular exam: Present regular rate and normal rhythm Expanded Upper Extremity Exam Right: Arm exam: Present normal inspection, full ROM and tenderness L/R Arms Top View: 1. Tender Neurological Exam Neurological exam: Present alert and oriented X3 Skin Skin exam: Present warm and intact Medical Decision Making Medical Records Medical records reviewed: Yes I reviewed the patient's medical records. Screening: Per USPSTF and CDC recommendations, given the prevalence of disease in our region, it is our hospital?s policy to screen for HIV and viral Hepatitis for all patients aged 18 and over and those with ongoing risk factors. Zeyad Inquiry Pt receiving controlled substance: No Zeyad was queried for this patient: No Vital Signs: 12/17/23 12:00 Temperature 97.9 F Temperature Source Oral Pulse Rate [Left Brachial] 72 Respiratory Rate 20 Blood Pressure [Left Arm] 142/91 H Blood Pressure Mean [Left Arm] 108 Blood Pressure Source [Left Arm] Automatic Cuff Blood Pressure Position [Left Arm] Sitting 02 Sat by Pulse Oximetry 99 Oxygen Delivery Method Room Air Lab Data Lab results reviewed: Yes I reviewed the patient's lab results. Orders (Tests/Meds): ORDERS Category Date Time Status Wrist XR right minimum 3 views [XR wrist RT min 3V] Exams 12/17/23 11:37 Completed Stat Radiology Data #1: Image(s): Wrist Image Reviewed: Yes I reviewed the patient's radiology results
[2023-12-17 12:43] VITALS: BP 142/91; PULSE 72; RESP 20; TEMP 36.6; O2SAT 99
== END 2023-12-17 12:45 | disposition home or self-care (01) ==
PROVIDERS: Emergency Provider Nurse Practitioner Family; PCP Nurse Practitioner Family
DX: S63.501A Unspecified sprain of right wrist, initial encounter (principal); W19.XXXA Unspecified fall, initial encounter
CPT/HCPCS: 73110; 99213; G0381

== ENCOUNTER 2024-05-04 14:55 | Outpatient (CLI) | payer BC, SELFPAY ==
--- NOTE | 2024-05-04 14:58 | XR_ITS ---
FINAL REPORT TECHNIQUE: 3 views left knee CLINICAL HISTORY: lt knee pain COMPARISON: None FINDINGS: LEFT KNEE: 3 images of the left knee were obtained. There is no evidence of fracture or dislocation. The joint spaces are intact. A small joint effusion is noted. There is a small osteophyte projecting from the posterior aspect of the superior patella. IMPRESSION: Small posterior superior patellar osteophyte, with a small joint effusion. Reviewed, Interpreted and Dictated by Adithya Ro MD Transcribed by Rimma Fitch Authenticated and [facility][1]
--- NOTE | 2024-05-04 14:58 | XR_ITS ---
FINAL REPORT TECHNIQUE: 3 views right ankle CLINICAL HISTORY: ankle pain COMPARISON: None FINDINGS: RIGHT ANKLE: 3 images of the right ankle were obtained. There is no evidence of fracture or dislocation. The joint spaces are intact. There is no soft tissue abnormality identified. IMPRESSION: No acute bony abnormality. Reviewed, Interpreted and Dictated by Adithya Ro MD Transcribed by Rimma Fitch Authenticated and [facility]
== END 2024-05-04 23:59 | disposition home or self-care (01) ==
LOC: RAD 14:56
PROVIDERS: Visit Provider Orthopaedic Surgery
DX: M25.562 Pain in left knee (principal); M25.571 Pain in right ankle and joints of right foot
CPT/HCPCS: 73562; 73610

== ENCOUNTER 2024-05-11 16:33 | Outpatient (CLI) | payer BC, SELFPAY ==
--- NOTE | 2024-05-11 16:51 | MR_ITS ---
PROCEDURE INFORMATION: Exam: MR Left Lower Extremity Joint Without Contrast, Knee Exam date and time: 05/11/2024 4:59 PM Age: 38 years old Clinical indication: Sharp left lateral knee pain x 3 months; Additional info: Lt knee pain TECHNIQUE: Imaging protocol: Magnetic resonance imaging of the left lower extremity joint without contrast. Exam focused on the knee. COMPARISON: CR XR KNEE LT 3V 05/04/2024 3:00 PM FINDINGS: Bones/joints: A small patellofemoral joint effusion is visualized. There is heterogeneous signal intensity of the patellar cartilage with a fissure at the medial facet. A patellar enthesophyte is visualized. Mild additional spurring is visualized of the patella, which is degenerative. No dislocation of the knee. No visualized acute marrow edema. There is irregularity of the cartilage at the weight-bearing surface of the medial femoral condyle, with fissure. Bursae: No significant Owen cyst is visualized. Medial meniscus: Myxoid degeneration is identified of the medial meniscus. There is a punctate focus of increased PD signal intensity within the posterior root of the medial meniscus on series 4, image 13, and meniscal tear is suggested. There is a small amount of fluid in the medial compartment of the knee, with minimal fluid extending to the undersurface of the posterior horn the medial meniscus. The fluid inferior to the posterior horn of the medial meniscus measures 1 mm in thickness. Lateral meniscus: Tear is visualized of the posterior horn of the lateral meniscus extending to the inferior articulating surface. Myxoid degeneration of the lateral meniscus. An additional tear is suggested of the body of the lateral meniscus. Anterior cruciate ligament: There is separation of the bands of the ACL. There is mild increased PD signal intensity identified between the bands of the ACL, although tear is not well-defined. A small cystic collection of fluid is visualized adjacent to the proximal ACL measuring 5-6 mm in diameter. Posterior cruciate ligament: No visualized tear. Medial capsule and supporting structures: Unremarkable. No tear. Lateral capsule and supporting structures: A tiny linear focus of T2 hyperintensity is seen adjacent the proximal lateral collateral ligament favored to represent a vessel. A tear is considered less likely. Extensor mechanism of knee: There is heterogeneous signal intensity of the patellar tendon, consistent with tendinosis. There is heterogeneous increased signal intensity of the distal quadriceps tendon, consistent with tendinosis. Partial tear cannot be excluded. Soft tissues: Unremarkable. IMPRESSION: 1. Meniscal tears. There is a small amount of fluid in the medial compartment of the knee, with minimal fluid extending to the undersurface of the posterior horn the medial meniscus. 2. A small patellofemoral joint effusion is visualized. 3. There is heterogeneous signal intensity of the patellar cartilage with a fissure at the medial facet. A patellar enthesophyte is visualized. Mild additional spurring is visualized of the patella, which is degenerative. A fissure is also identified of the cartilage of the weight-bearing surface of the medial femoral condyle. 4. There is heterogeneous increased signal intensity of the distal quadriceps tendon, consistent with tendinosis. Partial tear cannot be excluded. 5. Additional findings described above.
== END 2024-05-11 23:59 | disposition home or self-care (01) ==
LOC: RAD 16:34
PROVIDERS: Visit Provider Orthopaedic Surgery
DX: M25.562 Pain in left knee (principal)
CPT/HCPCS: 73721